=== PATIENT | female | born 1990 | race African-American/Black ===

== ENCOUNTER 2024-07-22 23:28 | Emergency (ER) | payer OTHER ==
[~2024-07-22] VITALS: Ht 160 cm; Wt 65.3 kg
[2024-07-23 02:36] LABS: APPEARANCE,URINE CLOUDY (CLEAR); BILIRUBIN,URINE 2+ (NEGATIVE); BLOOD, URINE 3+ Ery/uL (NEGATIVE); COLOR,URINE RED (YELLOW); KETONES,URINE 2+ mg/dL (NEGATIVE); LEUKOCYTE ESTERASE ,URINE 3+ (NEGATIVE); NITRITE, URINE POSITIVE (NEGATIVE); PROTEIN,URINE 3+ mg/dl (NEGATIVE); UGLUCOSE NEGATIVE (NEGATIVE)
[2024-07-23 02:40] LABS: ADD URINE CULTURE YES; BACTERIA,URINE Moderate /HPF (None Seen); RBC,URINE TOO NUMEROUS TO COUN /HPF (0-2); SQUAMOUS EPITHELIAL CELL,UR Rare /HPF (None Seen); WBC,URINE 21-50 /HPF (0-3)
[2024-07-23] MEDS ORDERED: ONDANSETRON 4 MG TAB.RAPDIS ONE (02:41)
[2024-07-23] MEDS ORDERED: ACETAMINOPHEN ES 500 MG TABLET ONE (02:41)
[2024-07-23] MEDS: ACETAMINOPHEN ES 500 MG TABLET PO ONE (02:44)
[2024-07-23] MEDS: ONDANSETRON 4 MG TAB.RAPDIS PO ONE (02:44)
[2024-07-23 03:22] LABS: PREGNANCY TEST URINE QUAL NEGATIVE (NEGATIVE)
[2024-07-23] MEDS ORDERED: CEFP200T14 PO (03:44)
[2024-07-23 03:59] VITALS: BP 122/88; TEMP 98.4; O2SAT 98
== END 2024-07-23 04:02 | disposition home or self-care (01) ==
LOC: ER 23:43
DX: N39.0 Urinary tract infection, site not specified (principal); R11.0 Nausea; R10.30 Lower abdominal pain, unspecified
CPT/HCPCS: 99283; 87086; 84703; 81001; Q0162